=== PATIENT | male | born 1970 | race African-American/Black ===

== ENCOUNTER 2022-11-23 11:50 | Inpatient (IN) | payer OTHER ==
[~2022-11-23] VITALS: Ht 177.8 cm; Wt 121.3 kg
[2022-11-23] MEDS ORDERED: ASPirin 325 MG TAB PO ONE (12:45)
[2022-11-23] MEDS ORDERED: NITROGLYCERIN 0.4 MG SL TAB SL ONE (12:45)
[2022-11-23 12:53] LABS: Hemoglobin 17.8 g/dL (13.5-17.5); Red Cell Distribution Width 13.9 % (11.8-14.3); White Blood Cell 5.7 10^3/uL (4.4-10.8)
[2022-11-23 12:55] LABS: Hematocrit 52.6 % (41.0-53.0); Mean Corpuscular Hemoglobin 28.7 pg (28.0-32.0); Mean Corpuscular Hgb Conc. 33.9 g/dL (32.0-36.0); Mean Corpuscular Volume 84.6 fL (80.0-100.0); Red Blood Cells 6.22 10^6/uL (4.5-5.90)
[2022-11-23 13:16] LABS: Albumin 4.2 g/dL (3.4-5.0); Calcium 9.3 mg/dL (8.5-10.1); Potassium 3.6 mmol/L (3.5-5.1)
[2022-11-23 13:17] LABS: Basophils % (manual) 0 (0.0-2.0); Blast Cells 0; Eosinophils % (manual) 0 (0-7); Metamyelocytes % 0; Myelocytes % 0; Promyelocytes % 0; Reactive Lymphocytes 0
[2022-11-23 13:20] LABS: Bilirubin, Total 0.6 mg/dL (0.2-1.0)
[2022-11-23] MEDS ORDERED: NITROGLYCERIN 0.4 MG SL TAB SL PRN (13:45)
[2022-11-23] MEDS ORDERED: MORPHINE SULFATE INJ 2 MG/ml SYRG IV PRN (13:45)
[2022-11-23] MEDS ORDERED: PANTOPRAZOLE 40 MG/10 ML VIAL INJ IV ONE (14:00)
[2022-11-23 14:14] LABS: Band Neutrophils % (manual) 14; Lymphocytes % (manual) 45 (10.0-50.0); Monocytes % (manual) 22 (0-12)
[2022-11-23] MEDS ORDERED: DEXTROSE (50%) 50ML SYRG IV PRN (14:15)
[2022-11-23] MEDS: SODIUM CHLORIDE 0.9% 1,000 ML IV SCH (14:19)
[2022-11-23 14:27] LABS: INR 0.97 (0.9-1.15)
[2022-11-23 14:34] VITALS: BP 136/99
[2022-11-23 15:49] LABS: Cholesterol 163 mg/dL (< 200); HDL Cholesterol 51 mg/dL (40-59); LDL Cholesterol 101 mg/dL (< 100); Triglycerides 121 mg/dL (< 150)
[2022-11-23] MEDS: InsuLIN REG 1unit/0.01ml Soln (100units/ml) SC SCH ×2 (18:10→22:09)
[2022-11-23] MEDS: ACCU-CHEK COMFORT CURVE STRIP VI SCH ×2 (18:11→22:07)
[2022-11-24] VITALS (8 sets, daily range): BP systolic 141–157; BP diastolic 92–111
[2022-11-24] MEDS: ACETAMINOPHEN 325 MG TAB PO PRN ×3 (01:18→17:16)
[2022-11-24] MEDS: SODIUM CHLORIDE 0.9% 1,000 ML IV SCH ×2 (03:05→16:22)
[2022-11-24] MEDS ORDERED: METF-370 PO (05:03)
[2022-11-24] MEDS ORDERED: HYDR25TA4 PO (05:03)
[2022-11-24] MEDS ORDERED: LISI40TA11 PO (05:03)
[2022-11-24] MEDS ORDERED: ATOR20TA PO (05:03)
[2022-11-24] MEDS ORDERED: GABA-339 PO (05:03)
[2022-11-24] MEDS ORDERED: EMPA1TAB3 PO (05:03)
[2022-11-24] MEDS: InsuLIN REG 1unit/0.01ml Soln (100units/ml) SC SCH ×4 (06:04→21:22)
[2022-11-24] MEDS: ACCU-CHEK COMFORT CURVE STRIP VI SCH ×4 (06:05→21:22)
[2022-11-24] MEDS: ASPirin 81 mg TAB PO SCH (10:30)
[2022-11-24] MEDS: PANTOPRAZOLE 40 MG/10 ML VIAL INJ IV SCH (10:30)
[2022-11-24] MEDS: ENOXAPARIN SOD 40 MG/0.4 ML SYRINGE SC SCH (10:30)
[2022-11-24] MEDS ORDERED: AZITHROMYCIN 500MG/ 250ML 250 ML IV ONE (11:15)
[2022-11-24] MEDS ORDERED: CHOLECALCIFEROL (VITD3) 2,000 UNIT CAP/TAB PO ONE (11:15)
[2022-11-24] MEDS ORDERED: ZINC SULFATE 220mg CAP or TAB PO ONE (11:15)
[2022-11-24] MEDS ORDERED: LISINOPRIL 20 MG TAB PO ONE (11:30)
[2022-11-24 11:49] LABS: Urine Bacteria NONE SEEN /hpf (None Seen); Urine Blood Negative /uL (Negative); Urine Mucus FEW (None Seen); Urine Specific Gravity 1.023 (1.001-1.035); Urine WBC <1 /hpf (0 - 3)
[2022-11-24] MEDS: hydrALAZINE HCL 20 MG/ML VL IV PRN (17:16)
[2022-11-24] MEDS: guaiFENesin-DM 100/10mg/5ml SYR PO PRN (20:06)
[2022-11-24] MEDS: ASCORBIC ACID 500 MG TAB PO SCH (21:21)
[2022-11-24] MEDS: GABAPENTIN 300 MG CAP PO SCH (21:21)
[2022-11-25 04:00] VITALS: BP 136/100
[2022-11-25] MEDS: guaiFENesin-DM 100/10mg/5ml SYR PO PRN ×2 (04:24→18:13)
[2022-11-25] MEDS: SODIUM CHLORIDE 0.9% 1,000 ML IV SCH ×2 (05:45→19:05)
[2022-11-25] MEDS: ACCU-CHEK COMFORT CURVE STRIP VI SCH ×4 (06:36→21:36)
[2022-11-25] MEDS: InsuLIN REG 1unit/0.01ml Soln (100units/ml) SC SCH ×4 (06:36→21:36)
[2022-11-25 08:00] VITALS: BP 144/84
[2022-11-25] MEDS: GABAPENTIN 300 MG CAP PO SCH ×2 (08:53→21:36)
[2022-11-25] MEDS: PANTOPRAZOLE 40 MG/10 ML VIAL INJ IV SCH (08:53)
[2022-11-25] MEDS: CHOLECALCIFEROL (VITD3) 2,000 UNIT CAP/TAB PO SCH (08:53)
[2022-11-25] MEDS: ASCORBIC ACID 500 MG TAB PO SCH ×2 (08:54→21:36)
[2022-11-25] MEDS: ZINC SULFATE 220mg CAP or TAB PO SCH (08:54)
[2022-11-25] MEDS: ASPirin 81 mg TAB PO SCH (08:54)
[2022-11-25] MEDS: ENOXAPARIN SOD 40 MG/0.4 ML SYRINGE SC SCH (08:55)
[2022-11-25] MEDS: AZITHROMYCIN 500MG/ 250ML 250 ML IV SCH (08:55)
[2022-11-25] MEDS: HCTZ 25 MG TAB PO SCH (08:56)
[2022-11-25] MEDS: ACETAMINOPHEN 325 MG TAB PO PRN ×2 (08:59→21:37)
[2022-11-25] MEDS: LISINOPRIL 20 MG TAB PO SCH (09:04)
[2022-11-25 09:16] VITALS: BP 144/84
[2022-11-25] MEDS ORDERED: ATORVASTATIN 20 MG TAB PO ONE (10:00)
[2022-11-25] MEDS ORDERED: LISINOPRIL 20 MG TAB PO SCH (10:00)
[2022-11-25] MEDS ORDERED: COLCHICINE 0.6 MG CAP PO ONE (10:45)
[2022-11-25 12:52] VITALS: BP 156/97
[2022-11-25] MEDS: hydrALAZINE HCL 20 MG/ML VL IV PRN ×2 (12:57→18:14)
[2022-11-25 16:52] VITALS: BP 152/97
[2022-11-25 22:00] VITALS: BP 157/98
[2022-11-25] MEDS: ALBUTEROL SULF 2.5 MG/0.5ML(0.5%) NEB SOLN NEB PRN (23:29)
[2022-11-26 03:42] VITALS: BP 157/98
[2022-11-26 05:00] VITALS: BP 140/84
[2022-11-26] MEDS: guaiFENesin-DM 100/10mg/5ml SYR PO PRN (05:04)
[2022-11-26] MEDS: ACETAMINOPHEN 325 MG TAB PO PRN ×3 (05:05→21:30)
[2022-11-26] MEDS: InsuLIN REG 1unit/0.01ml Soln (100units/ml) SC SCH ×4 (06:01→21:31)
[2022-11-26] MEDS: ACCU-CHEK COMFORT CURVE STRIP VI SCH ×4 (06:01→21:30)
[2022-11-26] MEDS: ALBUTEROL SULF 2.5 MG/0.5ML(0.5%) NEB SOLN NEB PRN ×3 (06:20→23:21)
[2022-11-26 09:13] VITALS: BP 147/98
[2022-11-26] MEDS: PANTOPRAZOLE 40 MG/10 ML VIAL INJ IV SCH (09:44)
[2022-11-26] MEDS: AZITHROMYCIN 500MG/ 250ML 250 ML IV SCH (09:45)
[2022-11-26] MEDS: GABAPENTIN 300 MG CAP PO SCH ×3 (09:46→21:30)
[2022-11-26] MEDS: LISINOPRIL 20 MG TAB PO SCH (09:46)
[2022-11-26] MEDS: COLCHICINE 0.6 MG CAP PO SCH (09:46)
[2022-11-26] MEDS: ZINC SULFATE 220mg CAP or TAB PO SCH (09:47)
[2022-11-26] MEDS: HCTZ 25 MG TAB PO SCH (09:47)
[2022-11-26] MEDS: ASCORBIC ACID 500 MG TAB PO SCH ×2 (09:47→21:30)
[2022-11-26] MEDS: CHOLECALCIFEROL (VITD3) 2,000 UNIT CAP/TAB PO SCH (11:11)
[2022-11-26] MEDS: hydrALAZINE HCL 20 MG/ML VL IV PRN (12:12)
[2022-11-26 13:01] VITALS: BP 159/98
[2022-11-26 17:03] VITALS: BP 152/76
[2022-11-26 22:00] VITALS: BP 144/89
[2022-11-27 05:00] VITALS: BP 131/94
[2022-11-27] MEDS: ACCU-CHEK COMFORT CURVE STRIP VI SCH ×2 (06:28→11:50)
[2022-11-27] MEDS: InsuLIN REG 1unit/0.01ml Soln (100units/ml) SC SCH ×2 (06:28→12:01)
[2022-11-27 09:00] VITALS: BP 132/83
[2022-11-27] MEDS: GABAPENTIN 300 MG CAP PO SCH (10:00)
[2022-11-27] MEDS: ASCORBIC ACID 500 MG TAB PO SCH (10:14)
[2022-11-27] MEDS: AZITHROMYCIN 500MG/ 250ML 250 ML IV SCH (10:14)
[2022-11-27] MEDS: ACETAMINOPHEN 325 MG TAB PO PRN (10:14)
[2022-11-27] MEDS: LISINOPRIL 20 MG TAB PO SCH (10:16)
[2022-11-27] MEDS: COLCHICINE 0.6 MG CAP PO SCH (10:16)
[2022-11-27] MEDS: CHOLECALCIFEROL (VITD3) 2,000 UNIT CAP/TAB PO SCH (10:16)
[2022-11-27] MEDS: HCTZ 25 MG TAB PO SCH (10:16)
[2022-11-27] MEDS ORDERED: ALBUAER3 IN (10:30)
[2022-11-27] MEDS ORDERED: ZINC220C10 PO (10:30)
[2022-11-27] MEDS ORDERED: CHOL20007 PO (10:30)
[2022-11-27] MEDS ORDERED: AZIT500T66 PO (10:30)
[2022-11-27] MEDS ORDERED: ASCO500C49 PO (10:30)
[2022-11-27] MEDS: PANTOPRAZOLE 40 MG/10 ML VIAL INJ IV SCH (10:43)
[2022-11-27] MEDS: ZINC SULFATE 220mg CAP or TAB PO SCH (10:47)
== END 2022-11-27 14:57 | disposition home or self-care (01) | DRG 137 ==
LOC: ER 11:50 → TELE 13:39 → TELE-WESTW 11-24 04:00
PROVIDERS: ADMIT Nurse Practitioner Family; ATTEND Family Medicine
DX: U07.1 COVID-19 (principal); J96.01 Acute respiratory failure with hypoxia; N17.9 Acute kidney failure, unspecified; J18.9 Pneumonia, unspecified organism; I24.9 Acute ischemic heart disease, unspecified; E11.22 Type 2 diabetes mellitus with diabetic chronic kidney disease; E87.1 Hypo-osmolality and hyponatremia; E86.0 Dehydration; N18.9 Chronic kidney disease, unspecified; E66.01 Morbid (severe) obesity due to excess calories; J45.909 Unspecified asthma, uncomplicated; R04.0 Epistaxis; E78.5 Hyperlipidemia, unspecified; I12.9 Hypertensive chronic kidney disease with stage 1 through stage 4 chronic kidney disease, or unspecified chronic kidney disease; M10.9 Gout, unspecified; R74.01 Elevation of levels of liver transaminase levels; I25.2 Old myocardial infarction; Z91.014 Allergy to mammalian meats; Z91.011 Allergy to milk products; Z68.38 Body mass index [BMI] 38.0-38.9, adult; Z79.4 Long term (current) use of insulin
CPT/HCPCS: 36415; 71045; 80053; 80061; 81001; 82962; 83036; 84443; 84484; 85007; 85027; 85379; 85610; 87426; 87804; 93005; 93306; 94640; C9113; G0378; J1815

== ENCOUNTER 2023-07-02 15:41 | Inpatient (IN) | payer MEDICAID, OTHER ==
[~2023-07-02] VITALS: Ht 175.3 cm; Wt 118.0 kg
[~2023-07-02 15:41] MED LIST: ALBUAER3 IN; ASCO500C49 PO; ATOR20TA PO; AZIT500T66 PO; CHOL20007 PO; EMPA1TAB3 PO; GABA-339 PO; HYDR25TA4 PO; LISI40TA16 PO; METF-370 PO; ZINC220C10 PO
[2023-07-02 16:21] LABS: Alanine Aminotransferase 49 U/L (7-40); Albumin 4.8 g/dL (3.2-4.8); Alkaline Phosphatase 246 U/L (46-116); Anion Gap 13 (5-15); Aspartate Aminotransferase 30 U/L (13-40); BUN/Creatinine Ratio 15.7 (10.0-20.0); Blood Urea Nitrogen 31 mg/dL (9-23); Calcium 9.6 mg/dL (8.7-10.4); Carbon Dioxide 23 mmol/L (20-30); Chloride 100 mmol/L (98-107); Magnesium 2.4 mg/dL (1.6-2.6); Potassium 5.1 mmol/L (3.5-5.1); Sodium 136 mmol/L (136-145)
[2023-07-02 16:22] LABS: Bilirubin, Total 0.7 mg/dL (0.2-1.0); Total Protein 7.5 g/dL (5.7-8.2)
[2023-07-02 16:23] LABS: Hematocrit 51.6 % (41.0-53.0); Hemoglobin 16.8 g/dL (13.5-17.5); Mean Corpuscular Hemoglobin 28.5 pg (28.0-32.0); Mean Corpuscular Hgb Conc. 32.6 g/dL (32.0-36.0); Mean Corpuscular Volume 87.4 fL (80.0-100.0); Red Blood Cells 5.91 10^6/uL (4.5-5.90); Red Cell Distribution Width 14.1 % (11.8-14.3)
[2023-07-02 16:26] LABS: INR 1.01 (0.9-1.15); Partial Thromboplastin Time 23.9 SEC (24.5-34.5); Prothrombin Time 10.6 sec (9.3-11.8)
[2023-07-02 16:28] LABS: Glucose 521 mg/dL (74-106)
[2023-07-02] MEDS ORDERED: InsuLIN REG 1unit/0.01ml Soln (100units/ml) IV ONE (16:30)
[2023-07-02] MEDS ORDERED: SODIUM CHLORIDE 0.9% 1,000 ML IVB ONE (16:30)
[2023-07-02 16:32] LABS: Band Neutrophils % (manual) 0; Basophils % (manual) 0 (0.0-2.0); Blast Cells 0; Eosinophils % (manual) 0 (0-7); Metamyelocytes % 0; Myelocytes % 0; Promyelocytes % 0; Reactive Lymphocytes 0
[2023-07-02 16:37] LABS: Urine Bacteria NONE SEEN /hpf (None Seen); Urine Blood Negative /uL (Negative); Urine Clarity Clear (Clear); Urine Color Colorless (Yellow); Urine Hyaline Cast FEW /lpf (0 - 2); Urine Protein, UAD Negative (Negative); Urine Specific Gravity 1.031 (1.001-1.035); Urine Urobilinogen Normal (Negative); Urine WBC <1 /hpf (0 - 3)
[2023-07-02 17:58] LABS: Lymphocytes % (manual) 28 (10.0-50.0); Monocytes % (manual) 1 (0-12)
[2023-07-02 18:00] LABS: Platelet Estimate Adequate
[2023-07-02 21:49] VITALS: PULSE 80; RESP 21; O2SAT 92
[2023-07-03] MEDS ORDERED: PANTOPRAZOLE 40 MG/10 ML VIAL INJ IV ONE (00:30)
[2023-07-03] MEDS ORDERED: DEXTROSE (50%) 50ML SYRG IV PRN (00:30)
[2023-07-03] MEDS ORDERED: INSULIN LANTUS (GLARGINE) 1 /0.01ml (100units/ml) SC ONE (00:30)
[2023-07-03] MEDS ORDERED: ONDANSETRON HCL 4 MG/2 ML VIAL IV PRN (01:15)
[2023-07-03] MEDS ORDERED: SODIUM CHLORIDE 0.9% 1,000 ML IV SCH (01:15)
[2023-07-03] MEDS ORDERED: NITROGLYCERIN 0.4 MG SL TAB SL PRN (01:15)
[2023-07-03] MEDS ORDERED: MORPHINE SULFATE INJ 2 MG/ml SYRG IV PRN ×2 (01:15)
[2023-07-03] MEDS ORDERED: HYDROcodone-ACET 5/325MG TAB PO PRN (01:15)
[2023-07-03] MEDS ORDERED: DOCUSATE SOD 100 MG CAP PO PRN (01:15)
[2023-07-03] MEDS ORDERED: ACETAMINOPHEN 325 MG TAB PO PRN (01:15)
[2023-07-03] MEDS: ACCU-CHEK COMFORT CURVE STRIP VI SCH ×5 (04:20→22:41)
[2023-07-03] MEDS: InsuLIN REG 1unit/0.01ml Soln (100units/ml) SC SCH ×5 (04:35→22:40)
[2023-07-03 07:16] LABS: Basophils # (auto) 0.1 10 ^3/uL (0-0.2); Basophils % (auto) 0.9 % (0.0-2.0); Eosinophils # (auto) 0.1 10 ^3/uL (0-0.8); Eosinophils % (auto) 1.1 % (0.0-7.0); Hematocrit 50.3 % (41.0-53.0); Hemoglobin 16.6 g/dL (13.5-17.5); Lymphocytes # (auto) 3.1 10 ^3/uL (0.4-5.4); Lymphocytes % (auto) 31.1 % (10.0-50.0); Mean Corpuscular Hemoglobin 28.8 pg (28.0-32.0); Mean Corpuscular Hgb Conc. 32.9 g/dL (32.0-36.0); Mean Corpuscular Volume 87.5 fL (80.0-100.0); Monocytes # (auto) 0.7 10 ^3/uL (0-1.3); Monocytes % (auto) 7.3 % (0.0-12.0); Neutrophils # (auto) 5.9 10 ^3/uL (1.6-8.6); Neutrophils % (auto) 59.6 % (37.0-80.0); Nucleated Red Blood Cells % 0.1 %; Red Blood Cells 5.75 10^6/uL (4.5-5.90); Red Cell Distribution Width 14.4 % (11.8-14.3); White Blood Cell 9.8 10^3/uL (4.4-10.8)
[2023-07-03 07:32] LABS: Chloride 102 mmol/L (98-107); Potassium 4.6 mmol/L (3.5-5.1); Sodium 138 mmol/L (136-145)
[2023-07-03 07:59] LABS: Anion Gap 11 (5-15); Calcium 9.5 mg/dL (8.5-10.1); Carbon Dioxide 25 mmol/L (20-30)
[2023-07-03 08:04] LABS: BUN/Creatinine Ratio 11.4 (10.0-20.0)
[2023-07-03 08:05] LABS: Alkaline Phosphatase 213 U/L (46-116)
[2023-07-03 08:06] LABS: Alanine Aminotransferase 40 U/L (7-40); Albumin 4.8 g/dL (3.2-4.8); Aspartate Aminotransferase 24 U/L (13-40)
[2023-07-03 08:07] LABS: Bilirubin, Total 0.7 mg/dL (0.2-1.0); Total Protein 7.7 g/dL (5.7-8.2)
[2023-07-03 08:13] LABS: Blood Urea Nitrogen 24 mg/dL (9-23)
[2023-07-03 08:14] LABS: Glucose 436 mg/dL (74-106)
[2023-07-03 09:23] VITALS: PULSE 64; RESP 16; O2SAT 94
[2023-07-03] MEDS: ASPirin 81 mg TAB PO SCH (10:00)
[2023-07-03] MEDS: INSULIN LANTUS (GLARGINE) 1 /0.01ml (100units/ml) SC SCH ×2 (10:45→22:42)
[2023-07-03 16:45] VITALS: PULSE 67; RESP 17; O2SAT 99
[2023-07-03] MEDS ORDERED: HYDR50CA2 (17:21)
[2023-07-03] MEDS ORDERED: ATOR40TA52 PO (17:21)
[2023-07-03] MEDS ORDERED: NAP500T PO (17:21)
[2023-07-03] MEDS ORDERED: AMLO1TAB23 PO (17:21)
[2023-07-03] MEDS ORDERED: HYDR25TA5 PO (17:21)
[2023-07-03] MEDS: SOD CHL 0.45% 1,000 ML IV SCH (18:02)
[2023-07-03 20:00] VITALS: PULSE 75
[2023-07-03 22:00] VITALS: BP 125/75; PULSE 70; RESP 17; TEMP 98.9; O2SAT 97
[2023-07-03] MEDS: ATORVASTATIN 20 MG TAB PO SCH (22:42)
[2023-07-03] MEDS: FAMOTIDINE (10MG/ML) 2ML VL IV SCH (22:43)
[2023-07-04] VITALS (7 sets, daily range): BP systolic 118–148; BP diastolic 76–98; PULSE 66–85; RESP 16–19; TEMP 98.1–98.4; O2SAT 94–97
[2023-07-04] MEDS: SOD CHL 0.45% 1,000 ML IV SCH ×2 (02:45→15:28)
[2023-07-04] MEDS: ACCU-CHEK COMFORT CURVE STRIP VI SCH ×4 (04:46→15:29)
[2023-07-04] MEDS: InsuLIN REG 1unit/0.01ml Soln (100units/ml) SC SCH ×5 (04:46→16:46)
[2023-07-04 06:40] LABS: Basophils # (auto) 0.1 10 ^3/uL (0-0.2); Basophils % (auto) 0.7 % (0.0-2.0); Eosinophils # (auto) 0.1 10 ^3/uL (0-0.8); Eosinophils % (auto) 1.8 % (0.0-7.0); Hemoglobin 14.5 g/dL (13.5-17.5); Lymphocytes # (auto) 3.1 10 ^3/uL (0.4-5.4); Lymphocytes % (auto) 37.6 % (10.0-50.0); Mean Corpuscular Hemoglobin 28.4 pg (28.0-32.0); Mean Corpuscular Hgb Conc. 32.9 g/dL (32.0-36.0); Mean Corpuscular Volume 86.3 fL (80.0-100.0); Monocytes # (auto) 0.7 10 ^3/uL (0-1.3); Monocytes % (auto) 7.9 % (0.0-12.0); Neutrophils # (auto) 4.3 10 ^3/uL (1.6-8.6); Nucleated Red Blood Cells % 0.2 %; Red Blood Cells 5.09 10^6/uL (4.5-5.90); White Blood Cell 8.2 10^3/uL (4.4-10.8)
[2023-07-04 07:20] LABS: Alanine Aminotransferase 35 U/L (7-40); Albumin 4.1 g/dL (3.2-4.8); Alkaline Phosphatase 166 U/L (46-116); Anion Gap 10 (5-15); Aspartate Aminotransferase 33 U/L (13-40); BUN/Creatinine Ratio 11.7 (10.0-20.0); Blood Urea Nitrogen 17 mg/dL (9-23); Calcium 9.3 mg/dL (8.5-10.1); Carbon Dioxide 25 mmol/L (20-30); Chloride 104 mmol/L (98-107); Cholesterol 157 mg/dL (< 200); HDL Cholesterol 32 mg/dL (40-59); LDL Cholesterol 93 mg/dL (< 100); Potassium 3.4 mmol/L (3.5-5.1); Sodium 139 mmol/L (136-145)
[2023-07-04 07:21] LABS: Bilirubin, Total 0.6 mg/dL (0.2-1.0); Total Protein 6.4 g/dL (5.7-8.2)
[2023-07-04 07:25] LABS: Glucose 208 mg/dL (74-106)
[2023-07-04 08:58] LABS: Triglycerides 144 mg/dL (< 150)
[2023-07-04] MEDS: INSULIN LANTUS (GLARGINE) 1 /0.01ml (100units/ml) SC SCH (09:30)
[2023-07-04] MEDS: ASPirin 81 mg TAB PO SCH (10:34)
[2023-07-04] MEDS: FAMOTIDINE (10MG/ML) 2ML VL IV SCH (10:34)
[2023-07-05] VITALS (7 sets, daily range): BP systolic 123–159; BP diastolic 64–96; PULSE 64–87; RESP 16–21; TEMP 97.5–98.3; O2SAT 94–96
[2023-07-05] MEDS: INSULIN LANTUS (GLARGINE) 1 /0.01ml (100units/ml) SC SCH ×3 (00:48→21:35)
[2023-07-05] MEDS: InsuLIN REG 1unit/0.01ml Soln (100units/ml) SC SCH ×6 (00:50→20:25)
[2023-07-05] MEDS: ATORVASTATIN 20 MG TAB PO SCH ×2 (00:51→21:31)
[2023-07-05] MEDS: FAMOTIDINE (10MG/ML) 2ML VL IV SCH ×3 (00:51→21:31)
[2023-07-05] MEDS: SOD CHL 0.45% 1,000 ML IV SCH ×4 (01:01→22:17)
[2023-07-05] MEDS: ACCU-CHEK COMFORT CURVE STRIP VI SCH ×6 (04:00→20:18)
[2023-07-05] MEDS ORDERED: ADENOSINE 102 MG in GIVE UN-DILUTED 0 ML IV STA (08:15)
[2023-07-05] MEDS: ASPirin 81 mg TAB PO SCH (10:00)
[2023-07-05 16:12] LABS: Chloride 104 mmol/L (98-107); Potassium 3.9 mmol/L (3.5-5.1)
[2023-07-05 16:13] LABS: Anion Gap 7 (5-15); Calcium 8.7 mg/dL (8.5-10.1); Carbon Dioxide 23 mmol/L (20-30)
[2023-07-05 16:15] LABS: Sodium 134 mmol/L (136-145)
[2023-07-05 16:18] LABS: BUN/Creatinine Ratio 5.8 (10.0-20.0); Blood Urea Nitrogen 8 mg/dL (9-23); Glucose 266 mg/dL (74-106)
[2023-07-05] MEDS ORDERED: LORazepam 2MG/ML-1ML VIAL IV PRN (20:15)
[2023-07-06] MEDS: ACCU-CHEK COMFORT CURVE STRIP VI SCH ×6 (00:06→17:54)
[2023-07-06] MEDS: InsuLIN REG 1unit/0.01ml Soln (100units/ml) SC SCH ×6 (00:07→17:59)
[2023-07-06 05:00] VITALS: BP 150/101; PULSE 64; RESP 16; TEMP 99.5; O2SAT 98
[2023-07-06 06:20] LABS: Chloride 103 mmol/L (98-107); Potassium 3.2 mmol/L (3.5-5.1); Sodium 138 mmol/L (136-145)
[2023-07-06 06:21] LABS: Anion Gap 7 (5-15); Carbon Dioxide 28 mmol/L (20-30)
[2023-07-06 06:26] LABS: Blood Urea Nitrogen 9 mg/dL (9-23); Glucose 101 mg/dL (74-106)
[2023-07-06] MEDS ORDERED: POTASSIUM CHL 20 Meq TABLET PO ONE (07:30)
[2023-07-06 08:00] VITALS: PULSE 64
[2023-07-06 09:00] VITALS: BP 147/99; PULSE 71; RESP 20; TEMP 97.7; O2SAT 95
[2023-07-06] MEDS: FAMOTIDINE (10MG/ML) 2ML VL IV SCH (09:44)
[2023-07-06] MEDS: ASPirin 81 mg TAB PO SCH (09:44)
[2023-07-06] MEDS: INSULIN LANTUS (GLARGINE) 1 /0.01ml (100units/ml) SC SCH (09:55)
[2023-07-06 12:58] VITALS: BP 135/86; PULSE 66; RESP 21; TEMP 98; O2SAT 98
[2023-07-06] MEDS ORDERED: amLODIPine BESYLATE 5 MG TAB PO ONE (13:15)
[2023-07-06] MEDS ORDERED: LISINOPRIL 20 MG TAB PO ONE (13:15)
[2023-07-06] MEDS ORDERED: AMLO1TAB23 PO (14:13)
[2023-07-06] MEDS ORDERED: EMPA1TAB PO (14:13)
[2023-07-06] MEDS ORDERED: INSLANTI SC (14:13)
[2023-07-06] MEDS ORDERED: ATOR20TA PO (14:13)
[2023-07-06] MEDS ORDERED: LISI40TA16 PO (14:13)
[2023-07-06] MEDS ORDERED: GABA300C PO (14:14)
[2023-07-06] MEDS ORDERED: ASCO500T11 PO (14:14)
[2023-07-06] MEDS ORDERED: MULTTAB99 GT (14:14)
[2023-07-06] MEDS ORDERED: CHOL1CAP47 PO (14:14)
[2023-07-06] MEDS ORDERED: BLOO1KIT60 XX (14:14)
[2023-07-06 17:00] VITALS: BP 152/98; PULSE 69; RESP 21; TEMP 97.5; O2SAT 96
== END 2023-07-06 18:12 | disposition home or self-care (01) | DRG 469 ==
LOC: ER 15:41 → TELE 07-03 01:29 → TELE-CENTR 07-03 16:42
PROVIDERS: ADMIT Nurse Practitioner Family; ATTEND Internal Medicine Geriatric Medicine
DX: N17.9 Acute kidney failure, unspecified (principal); E11.649 Type 2 diabetes mellitus with hypoglycemia without coma; E11.22 Type 2 diabetes mellitus with diabetic chronic kidney disease; H05.20 Unspecified exophthalmos; D72.829 Elevated white blood cell count, unspecified; E11.65 Type 2 diabetes mellitus with hyperglycemia; E86.0 Dehydration; E86.9 Volume depletion, unspecified; E78.2 Mixed hyperlipidemia; I12.9 Hypertensive chronic kidney disease with stage 1 through stage 4 chronic kidney disease, or unspecified chronic kidney disease; J45.909 Unspecified asthma, uncomplicated; E87.5 Hyperkalemia; N18.9 Chronic kidney disease, unspecified; G47.30 Sleep apnea, unspecified; G56.00 Carpal tunnel syndrome, unspecified upper limb; I25.10 Atherosclerotic heart disease of native coronary artery without angina pectoris; I25.2 Old myocardial infarction; Z91.011 Allergy to milk products; Z79.82 Long term (current) use of aspirin; Z79.84 Long term (current) use of oral hypoglycemic drugs; Z79.899 Other long term (current) drug therapy; Z80.0 Family history of malignant neoplasm of digestive organs; Z83.3 Family history of diabetes mellitus; Z91.199 Patient's noncompliance with other medical treatment and regimen due to unspecified reason; Z88.8 Allergy status to other drugs, medicaments and biological substances
CPT/HCPCS: 36415; 70450; 70545; 70551; 71045; 78452; 80048; 80053; 80061; 81001; 82010; 82962; 83036; 83735; 84484; 85007; 85025; 85027; 85610; 85730; 93005; 93017; 93306; 93886; 99291; C9113; G0378; J0153; J1815; J3490

== ENCOUNTER 2023-09-26 13:02 | Emergency (ER) | payer MEDICAID, OTHER ==
[~2023-09-26] VITALS: Ht 177.8 cm; Wt 96.4 kg
[~2023-09-26 13:02] MED LIST changes: -ALBUAER3 IN; +AMLO1TAB23 PO; -ASCO500C49 PO; +ASCO500T11 PO; +ATOR40TA52 PO; -AZIT500T66 PO; +BLOO1KIT60 XX; +CHOL1CAP47 PO; +EMPA1TAB PO; -GABA-339 PO; +GABA300C PO; +HYDR50CA2; +INSLANTI SC; +MULTTAB99 GT; -ZINC220C10 PO
[2023-09-26 14:54] LABS: Basophils # (auto) 0.1 10 ^3/uL (0-0.2); Basophils % (auto) 0.9 % (0.0-2.0); Eosinophils # (auto) 0.1 10 ^3/uL (0-0.8); Eosinophils % (auto) 0.9 % (0.0-7.0); Hematocrit 48.6 % (41.0-53.0); Hemoglobin 16.3 g/dL (13.5-17.5); Lymphocytes # (auto) 2.5 10 ^3/uL (0.4-5.4); Lymphocytes % (auto) 36.7 % (10.0-50.0); Mean Corpuscular Hgb Conc. 33.5 g/dL (32.0-36.0); Mean Corpuscular Volume 86.5 fL (80.0-100.0); Monocytes # (auto) 0.4 10 ^3/uL (0-1.3); Monocytes % (auto) 6.1 % (0.0-12.0); Neutrophils # (auto) 3.8 10 ^3/uL (1.6-8.6); Neutrophils % (auto) 55.4 % (37.0-80.0); Nucleated Red Blood Cells % 0.2 %; Red Blood Cells 5.62 10^6/uL (4.5-5.90); Red Cell Distribution Width 13.8 % (11.8-14.3); White Blood Cell 6.9 10^3/uL (4.4-10.8)
[2023-09-26 15:06] LABS: Chloride 102 mmol/L (98-107); Potassium 4.2 mmol/L (3.5-5.1); Sodium 134 mmol/L (136-145)
[2023-09-26 15:07] LABS: Anion Gap 9 (5-15); Calcium 9.9 mg/dL (8.7-10.4); Carbon Dioxide 23 mmol/L (20-30)
[2023-09-26 15:12] LABS: BUN/Creatinine Ratio 10.6 (10.0-20.0); Blood Urea Nitrogen 15 mg/dL (9-23)
[2023-09-26 15:33] LABS: Glucose 490 mg/dL (74-106)
[2023-09-26] MEDS ORDERED: SODIUM CHLORIDE 0.9% 1,000 ML IV ONE (17:30)
[2023-09-26] MEDS ORDERED: InsuLIN REG 1unit/0.01ml Soln (100units/ml) IV ONE (17:30)
[2023-09-26 18:11] LABS: Urine Epithelial Cast None Seen /hpf (<5); Urine WBC None Seen /hpf (0 - 3)
[2023-09-26 18:29] LABS: Urine Bacteria NONE SEEN /hpf (None Seen); Urine Blood Negative /uL (Negative); Urine Clarity Clear (Clear); Urine Color Colorless (Yellow); Urine Protein, UAD Negative (Negative); Urine Specific Gravity 1.035 (1.001-1.035); Urine Urobilinogen Normal (Negative)
[2023-09-26 19:39] VITALS: BP 169/105; PULSE 76; RESP 18; TEMP 98.2; O2SAT 97
[2023-09-26] MEDS ORDERED: HYDROcodone-ACET 5/325MG TAB PO ONE (20:00)
[2023-09-26] MEDS ORDERED: cloNIDine HCL 0.1 MG TAB PO ONE (20:00)
== END 2023-09-26 21:17 | disposition home or self-care (01) ==
LOC: ER 13:02
DX: M79.18 Myalgia, other site (principal); R10.9 Unspecified abdominal pain; I10 Essential (primary) hypertension; E11.9 Type 2 diabetes mellitus without complications; E78.5 Hyperlipidemia, unspecified; J45.909 Unspecified asthma, uncomplicated
CPT/HCPCS: 36415; 74176; 80048; 81001; 82962; 85025; 93005; 96360; 99284; J1815; J7030